=== PATIENT | male | born 1965 | race Caucasian/White ===

== ENCOUNTER 2019-10-27 08:15 | Observation (INO) ==
[2019-10-27] MEDS ORDERED: SODIUM CHLORIDE 0.9% 1,000 ML IV STA (08:36)
[2019-10-27] MEDS ORDERED: ONDANSETRON 4 MG/2 ML VIAL IV STA ×2 (08:36→10:02)
[2019-10-27] MEDS ORDERED: methylPREDNISolone SOD SUC 125 MG/2 ML VIAL IV STA (08:57)
[2019-10-27 09:33] LABS: Basophils % 0.2 % (0.0-0.8); Hematocrit 41.8 VOL% (42.0-52.0); Immature Granulocytes % 0.6 %; Lymphocytes # 0.5 10*3/uL (1.4-4.0); Lymphocytes % 3.1 % (21.2-54.2); Mean Corpuscular HGB Conc 33.5 GM/DL (32-36); Mean Corpuscular Volume 90.7 FL (87-102); Monocytes % 2.5 % (1.7-12.7); Neutrophils % 93.6 % (38.7-73.9); Platelet Count 197 T/CUMM (130-400); Red Blood Count 4.61 MC/CUMM (3.8-5.5); Red Cell Distribution Width 12.8 % (9.3-17.3); White Blood Count 16.7 T/CUMM (4-12)
[2019-10-27 09:53] LABS: Eosinophils 1 % (0-10); Lymphocytes 4 % (20-55); Platelet Estimate Adequate; Segmented Neutrophils 93 % (50-85); Total Cells Counted 100
[2019-10-27 09:54] LABS: Hypochromasia 1+
[2019-10-27] MEDS ORDERED: HYDROmorphone 2 MG/1 ML VIAL IV STA (10:02)
[2019-10-27] MEDS ORDERED: HYDROmorphone 2 MG/1 ML VIAL ONE (10:04)
[2019-10-27 10:09] LABS: Albumin 4.2 G/DL (3.4-5.0); Bilirubin,Total 0.7 MG/DL (0.2-1.0); Calcium 8.9 MG/DL (8.5-10.1); Osmolality,Calculated 277.7 MOS/KG (273-304); Total Protein 7.4 G/DL (6.4-8.3)
[2019-10-27] MEDS ORDERED: AMPICILLIN/SULBACTAM 3,000 MG in SODIUM CHLORIDE 0.9% 100 ML IV STA (11:09)
[2019-10-27 11:47] LABS: Amorphous Crystals,Urine Few /HPF (Few); Apearance,Urine CLOUDY (Clear); Bilirubin,Urine Negative (Negative); Blood, Urine Negative (Negative); Glucose,Urine (UA) Negative (Negative); Ketones,Urine 20 mg/dL (Negative); Mucus,Urine Occasional /LPF (Occasional); Nitrite,Urine Negative (Negative); Protein,Urine Negative; Urine Color Yellow (Yellow); Urine Specific Gravity 1.019 (1.001-1.035); Urine Urobilinogen < 2.0 EU/DL (0.2-1.0)
[2019-10-27] MEDS ORDERED: ONDANSETRON 4 MG/2 ML VIAL IV PRN (11:54)
[2019-10-27] MEDS ORDERED: ACETAMINOPHEN 325 MG TABLET PO PRN (11:54)
[2019-10-28] MEDS ORDERED: cefOXitin 2,000 MG in SYRINGE 1 EACH IV ONE (08:56)
[2019-10-28] MEDS ORDERED: FAMOTIDINE 20 MG TABLET PO ONE (10:46)
[2019-10-28] MEDS ORDERED: DIAZEPAM 5 MG TABLET PO ONE (10:47)
[2019-10-28] MEDS ORDERED: LIDOCAINE 1%/EPI INJ 20 ML VIAL ONE (12:09)
[2019-10-28] MEDS ORDERED: TISSUE ADHESIVE 1 EACH APPLICATOR TOP ONE (12:09)
[2019-10-28] MEDS ORDERED: LACTATED RINGERS 1,000 ML IV SCH (12:30)
[2019-10-28] MEDS ORDERED: MEPERIDINE 25 MG/1 ML VIAL IV PRN (13:27)
[2019-10-28] MEDS ORDERED: oxyCODONE/ACETAMINOPHEN 5-325 MG TABLET PO PRN (13:27)
[2019-10-28] MEDS ORDERED: LIDOCAINE 2% 5 ML VIAL ONE (14:52)
[2019-10-28] MEDS ORDERED: fentaNYL 100 MCG/2 ML VIAL ONE (14:52)
[2019-10-28] MEDS ORDERED: MIDAZOLAM 2 MG/2 ML VIAL ONE (14:52)
[2019-10-28] MEDS ORDERED: SEVOFLURANE 1 UNIT/15 MINUTE INH ONE (14:53)
[2019-10-28] MEDS ORDERED: propofoL 200 MG/20 ML VIAL IV ONE (14:53)
[2019-10-28] MEDS ORDERED: SUCCINYLCHOLINE 200 MG/10 ML VIAL ONE (14:53)
[2019-10-28] MEDS ORDERED: NEOSTIGMINE 10 MG/10 ML VIAL ONE (14:53)
[2019-10-28] MEDS ORDERED: DEXAMETHASONE 4 MG/1 ML VIAL ONE (14:53)
[2019-10-28] MEDS ORDERED: ONDANSETRON 4 MG/2 ML VIAL ONE (14:53)
[2019-10-28] MEDS ORDERED: ROCURONIUM 100 MG/10 ML VIAL IV ONE (14:53)
[2019-10-28] MEDS ORDERED: GLYCOPYRROLATE 0.4 MG/2 ML VIAL ONE (14:53)
[2019-10-28] MEDS ORDERED: ACETAMINOPHEN 1,000 MG/100 ML VIAL IV ONE (14:54)
[2019-10-28] MEDS ORDERED: KETOROLAC 30 MG/1 ML VIAL ONE (14:54)
[2019-10-28] MEDS ORDERED: HYDROmorphone 2 MG/1 ML VIAL IV PRN (14:59)
[2019-10-28] MEDS ORDERED: ONDANSETRON 4 MG/2 ML VIAL IV PRN (14:59)
[2019-10-28] MEDS ORDERED: TAMSULOSIN 0.4 MG CAPSULE PO SCH (21:00)
[2019-10-29 08:27] VITALS: BP 109/64
== END 2019-10-29 11:46 | disposition home or self-care (01) ==
LOC: N.ED 08:15 → N.EDINP 08:15 → N.3E 12:45
PROVIDERS: ADMIT Surgery; ATTEND Surgery
PROC: LAPCHOL (2019-10-28 13:18)